=== PATIENT | female | born 1955 | race Caucasian/White ===

== ENCOUNTER → 2017-08-08 09:18 | Outpatient (CLI) | payer BC, SELFPAY ==
--- NOTE | 2017-08-08 09:29 | MR_ITS ---
MR lumbar spine wo con, MR 3-d myelogram/MRCP HISTORY: Low back pain. Left hip and left leg pain with numbness and tingling in the left leg ITS.REASON: ACUTE RIGHT SIDED LOW BACK PAIN WITH RIGHT SIDED SCIATICA ORDERING PHYSICIAN: Adriel Salinas MD PATIENT AGE: 62 years COMPARISON: MRI of 11/01/2015 TECHNIQUE: Standard multiplanar multiecho sequences are performed without contrast. 3-D MIP and myelographic images are also rendered and reviewed FINDINGS: There is normal alignment. The spinal cord ends at the L1 level. T11-T12, T12-L1, and L1-L2 are unremarkable. Minimal disc desiccation at L2-L3. L3-L4: Minimal disc desiccation with mild facet and ligamentum flavum hypertrophy. L4-5 and L5-S1 is unremarkable. No disc herniation or canal stenosis. No significant change from the previous exam. IMPRESSION: 1. No disc herniation or canal stenosis. 2. Mild degenerative disc disease at L3-L4 with mild facet and ligamentum flavum hypertrophy as before with no significant change.
== END ==
PROVIDERS: Family Provider Nurse Practitioner; PCP Internal Medicine Adolescent Medicine; Visit Provider Internal Medicine Adolescent Medicine
DX: M54.41 Lumbago with sciatica, right side (principal)
CPT/HCPCS: 72148; 76376

== ENCOUNTER → 2017-10-24 06:20 | Outpatient (CLI) | payer BC, SELFPAY ==
--- NOTE | 2017-10-24 06:30 | NM_ITS ---
History and Indications: Diabetes, hyperlipidemia, family history, chest pain, shortness of breath. Procedure: Patient received a 0.4 mg of Lexiscan, resting heart rate was 85 bpm resting blood pressure 156/85, with Lexiscan maximum heart rate achieved was 117 bpm which is less than 85% of the maximum predicted heart rate and a blood pressure was 141/79. With Lexiscan patient complained of shortness of breath. Electrocardiogram: Resting electrocardiogram showed sinus rhythm, with Lexiscan there is less than 1.[address] segment depression noted from the baseline EKG. The EKG portion of the Lexiscan Myoview is nondiagnostic. Cardiac stress and resting SPECT images: Cardiac stress and resting SPECT images were obtained using technetium 99 Myoview 31.8 mCi at stress and 10.5 mCi at rest. Gated SPECT further analysis of segmental wall motion and calculation of the ejection fraction also done. Cardiac stress and resting SPECT images show uniform myocardial activity without segmental perfusion abnormality, computer derived ejection fraction is over 65% with no obvious regional wall motion abnormality, right ventricle is normal size and contractility. Conclusion: 1. The EKG portion of the Lexiscan Myoview is nondiagnostic. 2. No obvious scintigraphic evidence of reversible ischemia seen, computer derived ejection fraction is over 65% with no obvious regional wall motion abnormality, right ventricle is normal size and contractility. 3. Normal Lexiscan Myoview study.
--- NOTE | 2017-10-24 07:20 | HMH.ITSHM ---
ATORVASTATIN APIDRA TRASIBA TRINTELLIX VIMOVO TRAZODONE CYMBALTA
--- NOTE | 2017-10-24 10:16 | HMH.ITSHM ---
atorvastatin apidra trasiba trintellis vimovo trazodone cymbalta
== END ==
PROVIDERS: Family Provider Nurse Practitioner; PCP Internal Medicine Adolescent Medicine; Visit Provider Internal Medicine Adolescent Medicine
DX: I20.8 Other forms of angina pectoris (principal); E10.9 Type 1 diabetes mellitus without complications
CPT/HCPCS: 78452; 93017; A9502; J2785

== ENCOUNTER → 2018-11-04 08:57 | Outpatient (POV) | payer BC, SELFPAY ==
[2018-11-04 09:02] VITALS: BP 152/85; PULSE 93; RESP 18; O2SAT 98
--- NOTE | 2018-11-04 09:31 | HMH.PMCON ---
Assessment and Plan (1) Fibromyalgia Current visit: Yes Status: Chronic Category: Medical Code(s): M79.7 - Fibromyalgia (2) Degenerative disc disease Current visit: Yes Status: Chronic Qualifiers: Spinal region: lumbar Qualified Code(s): M51.36 - Other intervertebral disc degeneration, lumbar region Category: Medical (3) Sacroiliitis Current visit: Yes Status: Chronic Category: Medical Code(s): M46.1 - Sacroiliitis, not elsewhere classified - Assessment and plan all Dx Assessment and Plan for all problems:: We will set the patient up for SI joint injections. Patient has not had any injective therapy in the past. She has completed physical therapy. Patient is continuing a home stretching program. Patient is on anti-inflammatories. Patient has done Lyrica in the past with good relief. We will give her information in regards to the Lyrica assistance program. I will follow-up with her after her injection reassess her symptoms at that time she is been instructed to call the office if she has any issues prior to her next appointment. Dr. Miguel has reviewed this note and agrees with this plan of care. This note was dictated using voice recognition software and may contain errors or omissions HPI - Data of Consult Consult date: 11/04/18 Requesting Physician: Radha Vaz APRN Primary Care Provider: Adriel Salinas MD - Consult Narrative Reason for consult: Generalized pain, fibromyalgia, osteoarthritis History of present illness: Ms. Andrew is a 63 year old female who presents today for consultation in regards to her pain. Patient has multiple diagnoses including fibromyalgia and osteoarthritis. Patient has been on gabapentin and did not have much success with that she had side effects and was unable to continue it. Patient had Lyrica in the past however due to expense it was cost prohibitive. Patient did do well with this. She rates her pain today a 5 out of 10. Patient is tried and failed physical therapy. Patient does have an MRI with some mild degenerative changes. Patient states that most of her pain is in her low back radiating into her thighs. Patient has difficulty sitting for long periods of time. Patient has not had any injective therapy. Patient does have one leg longer than the other. CC: Radha Vaz APRN [facility] History I have reviewed the patient's past medical history: Yes Medical History: Reports:: Diabetes Mellitus Type 1, Hyperlipidemia *Have you ever received a pneumonia vaccine?: Yes *Have you received a flu vaccine this season?: Yes Other Surgeries: Yes: - *Social History Smoking Status: Never smoker Alcohol Intake: never *Occupational Status:: other Housing: house *Travel in the last 8 weeks: None - Psychiatric History Expresses thoughts of harming self/others: None Suicide Plan Description: No Plan Family Hx:: Unable to obtain Review of Systems - Review of Systems ROS General: no recent weight change, no fever, no sleep disturbances Respiratory: no cough, no shortness of air, no recurring pulmonary infections Cardiovascular/Peripheral Vascular: No chest pain, No palpitations, no edema, no shortness of breath. Gastrointestinal: no incontinence, normal bowel movements reported Genitourinary: no incontinence Musculoskeletal: SI joint pain, generalized pain Psychiatric: normal mood/ affect Neurological: [denies weakness in extremities], [denies balance issues] Meds Home Medications Medication Instructions Recorded Confirmed Type Atorvastatin Calcium [Atorvastatin 40 mg PO DAILY 11/04/18 11/04/18 History 10mg Tab] Duloxetine HCl 60 mg PO DAILY 11/04/18 11/04/18 History Trazodone HCl 100 mg PO HS 11/04/18 11/04/18 History Allergies Allergy/AdvReac Type Severity Reaction Status Date / Time iron [IRON] Allergy Unknown Unverified 06/05/17 14:38 Penicillins [PENICILLINS] Allergy Unknown Unverified 05/18
--- NOTE | 2018-11-04 09:34 | P.CONS_ITS ---
Assessment and Plan (1) Fibromyalgia Current visit: Yes Status: Chronic Category: Medical Code(s): M79.7 - Fibromyalgia (2) Degenerative disc disease Current visit: Yes Status: Chronic Qualifiers: Spinal region: lumbar Qualified Code(s): M51.36 - Other intervertebral disc degeneration, lumbar region Category: Medical (3) Sacroiliitis Current visit: Yes Status: Chronic Category: Medical Code(s): M46.1 - Sacroiliitis, not elsewhere classified - Assessment and plan all Dx Assessment and Plan for all problems:: We will set the patient up for SI joint injections. Patient has not had any injective therapy in the past. She has completed physical therapy. Patient is continuing a home stretching program. Patient is on anti-inflammatories. Patient has done Lyrica in the past with good relief. We will give her information in regards to the Lyrica assistance program. I will follow-up with her after her injection reassess her symptoms at that time she is been instructed to call the office if she has any issues prior to her next appointment. Dr. Miguel has reviewed this note and agrees with this plan of care. This note was dictated using voice recognition software and may contain errors or omissions HPI - Data of Consult Consult date: 11/04/18 Requesting Physician: Radha Vaz APRN Primary Care Provider: Adriel Salinas MD - Consult Narrative Reason for consult: Generalized pain, fibromyalgia, osteoarthritis History of present illness: Ms. Andrew is a 63 year old female who presents today for consultation in regards to her pain. Patient has multiple diagnoses including fibromyalgia and osteoarthritis. Patient has been on gabapentin and did not have much success with that she had side effects and was unable to continue it. Patient had Lyrica in the past however due to expense it was cost prohibitive. Patient did do well with this. She rates her pain today a 5 out of 10. Patient is tried and failed physical therapy. Patient does have an MRI with some mild degenerative changes. Patient states that most of her pain is in her low back radiating into her thighs. Patient has difficulty sitting for long periods of time. Patient has not had any injective therapy. Patient does have one leg longer than the other. CC: Radha Vaz APRN [facility] History I have reviewed the patient's past medical history: Yes Medical History: Reports:: Diabetes Mellitus Type 1, Hyperlipidemia *Have you ever received a pneumonia vaccine?: Yes *Have you received a flu vaccine this season?: Yes Other Surgeries: Yes: - *Social History Smoking Status: Never smoker Alcohol Intake: never *Occupational Status:: other Housing: house *Travel in the last 8 weeks: None - Psychiatric History Expresses thoughts of harming self/others: None Suicide Plan Description: No Plan Family Hx:: Unable to obtain Review of Systems - Review of Systems ROS General: no recent weight change, no fever, no sleep disturbances Respiratory: no cough, no shortness of air, no recurring pulmonary infections Cardiovascular/Peripheral Vascular: No chest pain, No palpitations, no edema, no shortness of breath. Gastrointestinal: no incontinence, normal bowel movements reported Genitourinary: no incontinence Musculoskeletal: SI joint pain, generalized pain Psychiatric: normal mood/ affect Neurological: [denies weakness in extremities], [denies balance issues] Meds Home Medications
== END ==
PROVIDERS: PCP Internal Medicine Adolescent Medicine; Visit Provider Clinical Nurse Specialist Family Health
DX: M79.7 Fibromyalgia (principal); M51.36 Other intervertebral disc degeneration, lumbar region; M46.1 Sacroiliitis, not elsewhere classified
CPT/HCPCS: 99202

== ENCOUNTER → 2019-02-04 12:38 | Outpatient (CLI) | payer BC, SELFPAY ==
--- NOTE | 2019-02-04 12:43 | XR_ITS ---
PROCEDURE: XR KNEE LT 3V CLINICAL INDICATION: LOCALIZED OSTEOARTHRITIS Knee pain COMPARISON: No exams were available for comparison FINDINGS: There are minimal osteoarthritic changes of the medial compartment. No fracture or dislocation. No lytic or blastic change. IMPRESSION: Minimal osteoarthritic change medial compartment Dictated by: Maurilio Washington MD 02/04/2019 14:11 Signed by: <Electronically signed by Maurilio Washington MD in [place]> 02/04/2019 14:11
== END ==
PROVIDERS: PCP Internal Medicine Adolescent Medicine; Visit Provider Internal Medicine Adolescent Medicine
DX: M17.12 Unilateral primary osteoarthritis, left knee (principal)
CPT/HCPCS: 73562

== ENCOUNTER → 2019-06-03 08:11 | Outpatient (CLI) | payer MEDICARE, SELFPAY ==
--- NOTE | 2019-06-03 08:14 | MM_ITS ---
PROCEDURE: MM DIG SCREENING MAMM BI W/CAD CLINICAL INDICATION: SCREENING There is no personal or family history of breast cancer. COMPARISON: MOBILE DIGITAL SCREEN BILAT* from 06/29/2011 MOBILE DIGITAL SCREEN BILAT* from 07/04/2012 DMDXUAVL DIG MAMM-DX UNI ADD VIEWS-LT from 08/01/2012 TECHNIQUE: Standard CC and MLO images were obtained. R2 CAD reviewed. FINDINGS: Moderate somewhat heterogenic fibroglandular densities are seen in both breast primarily upper outer quadrants. There is no suspicious lesion in either breast and no suspicious microcalcifications. IMPRESSION: Moderate breast density with no suspicious lesions seen BI-RAD Category: 1 Negative FOLLOW-UP: 1YR 1 Year Follow-up (A letter has been sent to the patient regarding results of the study.) Dictated by: Dr. Francis Mejias MD 06/05/2019 13:[address] Francis Mejias MD in [place] 06/05/2019 13:10
== END ==
PROVIDERS: PCP Internal Medicine Adolescent Medicine; Visit Provider Internal Medicine Adolescent Medicine
DX: Z12.31 Encounter for screening mammogram for malignant neoplasm of breast (principal)
CPT/HCPCS: 77067

== ENCOUNTER → 2019-06-09 09:00 | Outpatient (CLI) | payer MEDICARE, SELFPAY ==
--- NOTE | 2019-06-09 09:03 | XR_ITS ---
PROCEDURE: XR DEXA AXIAL SKELETON CLINICAL HISTORY: POSTMENOPAUSAL STATE COMPARISON: No exams were available for comparison FINDINGS: Lumbar spine (L1 through L4), BMD 0.855. T-score -1.7. Left hip (neck), BMD 0.642, T-score -1.9. Left hip (Total), BMD 0.734, T-score -1.7. IMPRESSION: Osteopenia. Dictated by: Sina Otto 06/09/2019 18:21 Electronically signed by Sina Otto in [place] 06/09/2019 18:21
== END ==
PROVIDERS: PCP Internal Medicine Adolescent Medicine; Visit Provider Internal Medicine Adolescent Medicine
DX: Z13.820 Encounter for screening for osteoporosis (principal); Z78.0 Asymptomatic menopausal state
CPT/HCPCS: 77080

== ENCOUNTER → 2020-06-08 12:58 | Outpatient (CLI) | payer MEDICARE, SELFPAY ==
--- NOTE | 2020-06-08 13:03 | MM_ITS ---
PROCEDURE: MM DIG SCREENING MAMM BI W/CAD Digital Breast Tomosynthesis Included CLINICAL INDICATION: SCREENING There is no personal or family history of breast cancer. The patient has had a previous biopsy but which breast is not indicated on the history sheet. COMPARISON: MG MOBILE DIGITAL SCREEN BILAT* from 07/04/2012 MG DMDXUAVL DIG MAMM-DX UNI ADD VIEWS-LT from 08/01/2012 MG MM DIG SCREENING MAMM BI W/CAD from 06/03/2019 TECHNIQUE: Standard CC and MLO images and 3D Tomosynthesis was obtained. R2 CAD reviewed. FINDINGS: Mild to moderate scattered fibroglandular densities are seen in each breast. These are bilateral and symmetrical. There are no CAD markings. There is no suspicious lesion and no suspicious microcalcifications. IMPRESSION: Fibrofatty parenchyma with no suspicious lesions seen BI-RAD Category: 1 Negative FOLLOW-UP: 1YR 1 Year Follow-up (A letter has been sent to the patient regarding results of the study.) Dictated by: Dr. Francis Mejias MD 06/13/2020 18:39 Dr. Francis Mejias MD in [place] 06/13/2020 18:39
== END ==
PROVIDERS: PCP Internal Medicine Adolescent Medicine; Visit Provider Internal Medicine Adolescent Medicine
DX: Z12.31 Encounter for screening mammogram for malignant neoplasm of breast (principal)
CPT/HCPCS: 77063; 77067

== ENCOUNTER 2020-09-28 21:01 | Emergency (ER) | payer MEDICARE, SELFPAY ==
[2020-09-28 21:10] VITALS: BP 116/66; PULSE 78; RESP 17; TEMP 36.8; O2SAT 98; BMI 27.4
[2020-09-28 21:14] VITALS: BMI 27.4
[2020-09-28 21:22] LABS: Basophils % 0.2 % (0.1-2.0); Eosinophils # 0.1 K/mm3 (0.0-0.4); Eosinophils % 0.3 % (0.1-12.0); Hematocrit 42.7 % (37.0-47.0); Hemoglobin 14.4 g/dL (12.2-16.2); Lymphocytes % 5.8 % (10-50); Mean Corpuscular HGB Conc 33.7 g/dL (31.8-35.4); Mean Corpuscular Hemoglobin 29.7 pg (27.0-31.2); Mean Corpuscular Volume 88.2 fl (81-99); Mean Platelet Volume 7.3 fl (7.4-10.4); Monocytes # 1.2 K/mm3 (0.1-1.0); Monocytes % 6.8 % (1.7-9.3); Neutrophils # 15.2 K/mm3 (1.8-7.8); Platelet Count 385 K/mm3 (142-424); Red Blood Count 4.84 M/mm3 (4.20-5.40); Red Cell Distribution Width 12.9 % (11.5-17.5); White Blood Count 17.5 K/mm3 (4.8-10.8)
[2020-09-28 21:26] LABS: Chloride 101 mmol/L (98-107)
[2020-09-28 21:27] LABS: Potassium 4.7 mmoL/L (3.5-5.1); Sodium 134 mmol/L (136-145)
[2020-09-28 21:29] LABS: Alanine Aminotransferase 24 U/L (12-78); Alkaline Phosphatase 113 U/L (38-126); Anion Gap 12.7 mEq/L (5-15); Aspartate Amino Transferase 31 U/L (14-36); Bilirubin,Total 0.7 mg/dl (0.2-1.3); Blood Urea Nitrogen 19 mg/dl (7-17); Carbon Dioxide 25 mmol/L (22.0-30.0); Creatinine Clearance Estimated 66 mL/min (50-200); Estimated Glomerular Filt Rate 63 ml/min (>60); GFR (African American) 77 ML/MIN (>60)
[2020-09-28 21:30] LABS: Albumin/Globulin Ratio 1.3 (1.1-1.8); Glucose 302 mg/dl (74-100)
[2020-09-28 21:32] LABS: MANUAL DIFFERENTIAL MANUAL DIFFERENTIAL (MANUAL DIFF)
[2020-09-28 22:00] VITALS: BP 113/64; PULSE 96; RESP 24; O2SAT 93
[2020-09-28 22:30] VITALS: BP 114/61; PULSE 98; RESP 22; O2SAT 92
--- NOTE | 2020-09-28 22:55 | HMH.EDGENADL ---
ED Disposition Clinical Impression: Urticaria, Hyperglycemia Disposition: Home, Self-Care Condition on Discharge: Fair Additional Instructions: Prednisone, hydroxyzine, and Pepcid as prescribed for hives. Follow blood sugar before each meal and before bed. If blood sugars persistently running greater than 350, contact your primary care provider. Contact your primary care provider for further instructions on diabetes medications. Prescriptions: Famotidine [Pepcid 20mg Tablet] 20 mg PO BID 3 Days #6 tab Transmission Status: Pending to [facility] predniSONE [Prednisone 20mg Tab] 20 mg PO BID #6 tab Transmission Status: Pending to [facility] hydrOXYzine pamoate [Vistaril] 25 mg PO Q6H #12 cap Transmission Status: Pending to [facility] Referrals: Adriel Salinas MD [Primary Care Provider] - - Critical Care Critical Care Time: No Attestation: On 09/28/20, the high probability of a clinically significant, sudden or life threatening deterioration of the following system(s) required my full and direct attention, intervention and personal management. The time I documented below is in addition to time spent performing reported procedures but includes the following listed in this critical care notation. Medical Decision Making - [place] Inquiry Pt receiving controlled substance: No Vital Signs: 09/28/20 21:10 09/28/20 22:00 09/28/20 22:30 Temperature 98.2 F Temperature Source Oral Pulse Rate 96 H 98 H Pulse Rate [Right Brachial] 78 Respiratory Rate 17 24 22 Blood Pressure 113/64 114/61 Blood Pressure [Right Arm] 116/66 Blood Pressure Mean [Right Arm] 82 Blood Pressure Source Automatic Cuff Automatic Cuff Blood Pressure Source [Right Arm] Automatic Cuff Blood Pressure Position Sitting Sitting Blood Pressure Position [Right Arm] Sitting 02 Sat by Pulse Oximetry 98 93 L 92 L Oxygen Delivery Method Room Air Room Air Room Air 09/28/20 23:00 09/28/20 23:30 09/29/20 00:00 Temperature Temperature Source Pulse Rate 95 H 92 H 91 H Pulse Rate [Right Brachial] Respiratory Rate 17 18 18 Blood Pressure 104/51 L 113/59 L 112/65 Blood Pressure [Right Arm] Blood Pressure Mean [Right Arm] Blood Pressure Source Automatic Cuff Automatic Cuff Automatic Cuff Blood Pressure Source [Right Arm] Blood Pressure Position Sitting Sitting Sitting Blood Pressure Position [Right Arm] 02 Sat by Pulse Oximetry 95 95 92 L Oxygen Delivery Method Room Air Room Air Room Air 09/29/20 00:30 Temperature Temperature Source Pulse Rate 90 Pulse Rate [Right Brachial] Respiratory Rate 18 Blood Pressure 119/69 Blood Pressure [Right Arm] Blood Pressure Mean [Right Arm] Blood Pressure Source Automatic Cuff Blood Pressure Source [Right Arm] Blood Pressure Position Sitting Blood Pressure Position [Right Arm] 02 Sat by Pulse Oximetry 94 L Oxygen Delivery Method Room Air - Lab Data Lab Results 09/28/20 21:10: WBC 17.5 H, RBC 4.84, Hgb 14.4, Hct 42.7, MCV 88.2, MCH 29.7, MCHC 33.7, RDW 12.9, Plt Count 385, MPV 7.3 L, Neut % (Auto) 87.0 H, Lymph % (Auto) 5.8 L, Gem % (Auto) 6.8, Eos % (Auto) 0.3, Baso % (Auto) 0.2, Neut # (Auto) 15.2 H, Lymph # (Auto) 1.0, Gem # (Auto) 1.2 H, Eos # (Auto) 0.1, Baso # (Auto) 0.0, Total Counted 100, Neutrophils % (Manual) 94 H, Lymphocytes % (Manual) 4 L, Monocytes % (Manual) 2, Platelet Estimate Normal, RBC Morphology Normal 09/28/20 21:10: Sodium 134 L, Potassium 4.7, Chloride 101, Carbon Dioxide 25, Anion Gap 12.7, BUN 19 H, Creatinine 0.90, Estimated Creat Clear 66, Estimated GFR 63, Est GFR ( Amer) 77, Glucose 302 H, Calcium 9.0, Total Bilirubin 0.7, AST 31, ALT 24, Alkaline Phosphatase 113, Total Protein 7.0, Albumin 4.0, Globulin 3.0, Albumin/Globulin Ratio 1.3 09/28/20 21:10: Troponin I < 0.01 09/29/20 00:10: Lactate 2.9 H 09/29/20 00:27: Urine Color Yellow, Urine Appearance Clear, Urine pH 5.5, Ur Specific [place] 1.015, Ur
[2020-09-28 23:00] VITALS: BP 104/51; PULSE 95; RESP 17; O2SAT 95
--- NOTE | 2020-09-28 23:07 | XR_ITS ---
PROCEDURE: XR CHEST PORTABLE CLINICAL HISTORY: chills COMPARISON: No exams were available for comparison FINDINGS: The cardiomediastinal silhouette and pulmonary vascularity are within normal limits. No lobar consolidation or collapse is evident. There is a vague stellate appearing area of increased density in the right upper lobe overlying the 3rd rib. This may only be due to overlapping structures however, 1 cannot exclude the possibility of a developing pulmonary nodule. Consider upright PA and lateral chest for further evaluation. The remaining lungs are clear. No acute bony abnormalities. IMPRESSION: Possible spiculated lesion right upper lobe versus overlapping vessels and ribs. Suggest upright PA and lateral chest for further evaluation. CT may eventually be needed if the lesion persists. Dictated by: Maurilio Washington MD 09/29/2020 05:56 Maurilio Washington MD in [place] 09/29/2020 05:56
[2020-09-28 23:08] LABS: Lymphocytes % 4 % (10-50); Monocytes % 2 % (2-9); Neutrophils % 94 % (42-76); Platelet Estimate Normal; RBC Morphology Normal; Total Cells Counted 100
[2020-09-28 23:30] VITALS: BP 113/59; PULSE 92; RESP 18; O2SAT 95
[2020-09-28 23:39] LABS: Troponin I < 0.01 ng/ml (0.00-0.034)
[2020-09-29] VITALS: BP 112/65; PULSE 91; RESP 18; O2SAT 92
[2020-09-29 00:30] VITALS: BP 119/69; PULSE 90; RESP 18; O2SAT 94
[2020-09-29 00:44] LABS: Lactic Acid 2.9 mmol/L (0.7-2.1)
[2020-09-29 00:59] LABS: Microscopic, Urine URINE MICROSCOPIC (MICROSCOPIC)
[2020-09-29 01:01] LABS: Appearance,Urine CLEAR (Clear); Bilirubin,Urine Negative (Negative); Blood, Urine Negative (Negative); Color,Urine YELLOW (Yellow); Glucose,Urine (UA) 3+ (Negative); Ketones,Urine TRACE (Negative); Leukocyte Esterase,Urine Negative (Negative); Nitrate,Urine Negative (Negative); PH,Urine 5.5 (5.0-8.5); Protein,Urine Negative (Negative); Specific Gravity, Urine 1.015 (1.005-1.030)
[2020-09-29 01:11] LABS: Bacteria,Urine 1+ /lpf
[2020-09-29 01:51] VITALS: BP 109/74; PULSE 89; RESP 17; TEMP 36.6; O2SAT 98
[2020-09-29 01:55] LABS: POC Glucose,Bedside 290 (70-110)
== END 2020-09-29 01:53 | disposition home or self-care (01) ==
PROVIDERS: Emergency Provider Emergency Medicine; PCP Internal Medicine Adolescent Medicine
DX: L50.0 Allergic urticaria (principal); T38.3X5A Adverse effect of insulin and oral hypoglycemic [antidiabetic] drugs, initial encounter; E10.649 Type 1 diabetes mellitus with hypoglycemia without coma; E10.65 Type 1 diabetes mellitus with hyperglycemia; K21.9 Gastro-esophageal reflux disease without esophagitis; E78.5 Hyperlipidemia, unspecified; Z88.0 Allergy status to penicillin; Z88.2 Allergy status to sulfonamides
CPT/HCPCS: 71045; 80053; 81001; 82962; 83605; 84484; 85007; 85025; 87040; 93005; 96365; 96375; 99283

== ENCOUNTER → 2020-10-11 12:45 | Outpatient (CLI) | payer MEDICARE, SELFPAY ==
[2020-10-11 13:06] LABS: Blood Urea Nitrogen 14 mg/dl (7-17); Estimated Glomerular Filt Rate 56 ml/min (>60); GFR (African American) 68 ML/MIN (>60)
--- NOTE | 2020-10-11 13:09 | CT_ITS ---
PROCEDURE: CT CHEST W CON CLINCAL INDICATION: LUNG MASS Follow up lung nodule COMPARISON: CR XR CHEST PORTABLE from 09/28/2020 TECHNIQUE: IV Contrast: 75ml Isovue 370 Axial images obtained with sagittal and coronal reformats. All CT scans at the facility use one or more dose reduction, viz: automated exposure control, ma/kV adjustment per patient size (including targeted exams where dose is matched to indication, i.e. head), or iterative reconstruction technique. FINDINGS: HEART AND MEDIASTINAL STRUCTURES: Unremarkable. LUNGS AND PLEURAL SPACES: 4 mm nodular middle lobe laterally. Two small nodular opacities in the left lower lobe at 3 mm. Subsolid nodular density left lower lobe laterally at 4 mm. Minimal atelectatic or fibrotic changes are present in the lingula. 3 mm noncalcified nodule right upper lobe image 15 series 3 BONY STRUCTURES: No acute bony abnormalities apparent. UPPER ABDOMEN: Mild fatty liver ADDITIONAL FINDINGS: Mildly prominent left axillary and subpectoral lymph nodes are present measuring up to 18 x 10 mm. Smaller nodes are present on the right.. IMPRESSION: 1. There are scattered small bilateral pulmonary nodules as detailed above. Consider six-month follow-up to confirm short term stability. No spiculated or suspicious nodules apparent. 2. Mildly prominent axillary lymph nodes etiology indeterminate. Dictated by: Maurilio Washington MD 10/12/2020 09:22 Maurilio Washington MD in [place] 10/12/2020 09:22
== END ==
PROVIDERS: PCP Internal Medicine Adolescent Medicine; Visit Provider Internal Medicine Adolescent Medicine
DX: R91.8 Other nonspecific abnormal finding of lung field (principal)
CPT/HCPCS: 36415; 71260; 82565; 84520; Q9967

== ENCOUNTER → 2021-04-18 08:07 | Outpatient (CLI) | payer MEDICARE, SELFPAY ==
--- NOTE | 2021-04-18 08:19 | CT_ITS ---
PROCEDURE: CT CHEST WO/W CON CLINCAL INDICATION: PULMONARY NODULE COMPARISON: CT CT CHEST W CON from 10/11/2020 TECHNIQUE: IV Contrast: 75ml Isovue 370 Axial images obtained with sagittal and coronal reformats. All CT scans at the facility use one or more dose reduction, viz: automated exposure control, ma/kV adjustment per patient size (including targeted exams where dose is matched to indication, i.e. head), or iterative reconstruction technique. FINDINGS: HEART AND MEDIASTINAL STRUCTURES: No evidence of aortic aneurysm or dissection. No evidence of central pulmonary embolus. There is mild prominence of the right and left main pulmonary arteries which could be related to pulmonary arterial hypertension. LUNGS AND PLEURAL SPACES: Scattered small nodular opacities once again noted not significantly changed. No new nodules evident. No suspicious nodules apparent. No effusions or infiltrates. BONY STRUCTURES: No acute bony abnormalities apparent. UPPER ABDOMEN: Nonspecific small area of enhancement involving the right hepatic lobe posteriorly not significantly changed ADDITIONAL FINDINGS: Small axillary nodes have slightly decreased in size compared to the previous exam. IMPRESSION: Stable CT appearance of the chest. No change in the small pulmonary nodules. No new nodules evident. Dictated by: Maurilio Washington MD 04/19/2021 13:31 Maurilio Washington MD in [place] 04/19/2021 13:31
[2021-04-18 08:33] LABS: Blood Urea Nitrogen 13 mg/dl (7-17); Estimated Glomerular Filt Rate 84 ml/min (>60); GFR (African American) 102 ML/MIN (>60)
== END ==
PROVIDERS: PCP Internal Medicine Adolescent Medicine; Visit Provider Internal Medicine Adolescent Medicine
DX: R91.8 Other nonspecific abnormal finding of lung field (principal)
CPT/HCPCS: 36415; 71270; 82565; 84520; Q9967

== ENCOUNTER → 2021-06-30 13:25 | Outpatient (CLI) | payer MEDICARE, SELFPAY | PROVIDERS: PCP Internal Medicine Adolescent Medicine; Visit Provider Nurse Practitioner | DX: U07.1 COVID-19 (principal) | CPT/HCPCS: C9803; U0003; U0005 ==

== ENCOUNTER → 2021-10-05 08:33 | Outpatient (CLI) | payer MEDICARE, SELFPAY ==
[2021-10-05 10:08] LABS: Chloride 103 mmol/L (98-107); Potassium 4.6 mmoL/L (3.5-5.1); Sodium 140 mmol/L (136-145)
[2021-10-05 10:10] LABS: Blood Urea Nitrogen 15 mg/dl (7-17); Estimated Glomerular Filt Rate 72 ml/min (>60); GFR (African American) 87 ML/MIN (>60)
[2021-10-05 10:11] LABS: Alanine Aminotransferase 22 U/L (12-78); Albumin Level 3.7 g/dl (3.5-5.0); Albumin/Globulin Ratio 1.3 (1.1-1.8); Alkaline Phosphatase 122 U/L (38-126); Anion Gap 9.6 mEq/L (5-15); Aspartate Amino Transferase 24 U/L (14-36); Bilirubin,Total 0.5 mg/dl (0.2-1.3); Calcium 8.5 mg/dl (8.4-10.2); Carbon Dioxide 32 mmol/L (22.0-30.0); Globulin 2.9 g/dL (1.3-3.2); Glucose 183 mg/dl (74-100); Total Protein,Serum 6.6 g/dl (6.3-8.2)
[2021-10-06 11:13] LABS: C-Peptide <0.1 ng/mL (1.1-4.4)
== END ==
PROVIDERS: Visit Provider Internal Medicine Endocrinology, Diabetes & Metabolism
DX: E10.65 Type 1 diabetes mellitus with hyperglycemia (principal)
CPT/HCPCS: 36415; 80053; 84681

== ENCOUNTER → 2022-02-27 17:21 | Outpatient (CLI) | payer MEDICARE, OTHER, SELFPAY ==
[2022-02-27 18:24] LABS: Basophils # 0.1 K/mm3 (0-0.2); Basophils % 1.1 % (0.1-2.0); Eosinophils # 0.2 K/mm3 (0.0-0.4); Eosinophils % 1.4 % (0.1-12.0); Hematocrit 45.3 % (37.0-47.0); Hemoglobin 14.3 g/dL (12.2-16.2); Lymphocytes % 19.6 % (10-50); Mean Corpuscular HGB Conc 31.6 g/dL (31.8-35.4); Mean Corpuscular Hemoglobin 29.2 pg (27.0-31.2); Mean Corpuscular Volume 92.2 fl (81-99); Mean Platelet Volume 8.1 fl (7.4-10.4); Monocytes % 9.1 % (1.7-9.3); Neutrophils # 7.2 K/mm3 (1.8-7.8); Neutrophils % 68.8 % (37.0-80.0); Platelet Count 364 K/mm3 (142-424); Red Blood Count 4.91 M/mm3 (4.20-5.40); Red Cell Distribution Width 13.6 % (11.5-17.5); White Blood Count 10.5 K/mm3 (4.8-10.8)
[2022-02-27 20:35] LABS: Hemoglobin A1C 7.7 % (4.0-6.0)
[2022-02-27 20:41] LABS: Alanine Aminotransferase 21 U/L (12-78); Albumin Level 4.1 g/dl (3.5-5.0); Albumin/Globulin Ratio 1.4 (1.1-1.8); Alkaline Phosphatase 120 U/L (38-126); Anion Gap 15.2 mEq/L (5-15); Aspartate Amino Transferase 26 U/L (14-36); Bilirubin,Total 0.6 mg/dl (0.2-1.3); Blood Urea Nitrogen 14 mg/dl (7-17); Carbon Dioxide 28 mmol/L (22.0-30.0); Chloride 97 mmol/L (98-107); Estimated Glomerular Filt Rate 63 ml/min (>60); GFR (African American) 76 ML/MIN (>60); Glucose 194 mg/dl (74-100); Potassium 4.2 mmoL/L (3.5-5.1); Sodium 136 mmol/L (136-145); Total Protein,Serum 7.1 g/dl (6.3-8.2)
[2022-02-27 20:48] LABS: C-Reactive Protein 1.5 mg/L (0-4)
[2022-02-27 20:59] LABS: T4 (Thyroxine) 10.7 ug/dl (5.53-11.0); Triiodothryronine (T3) Uptake 28 % (23.5-40.5)
[2022-02-27 21:12] LABS: Thyroid Stimulating Hormone 2.11 uIU/mL (0.465-4.68)
[2022-02-27 21:38] LABS: Erythrocyte Sedimentation Rate 15 mm/hr (0-30)
[2022-03-01 12:18] LABS: RA Latex Turbid. <10.0 IU/mL (<14.0)
[2022-03-01 14:59] LABS: Anti-Centromere B Antibodies 0.7 AI (0.0-0.9); Anti-DNA (DS) Ab Qn 1 IU/mL (0-9); Anti-Jo-1 <0.2 AI (0.0-0.9); Anti-Smith Antibody <0.2 AI (0.0-0.9); Antichromatin Antibodies 0.7 AI (0.0-0.9); Antiscleroderma-70 Antibodies <0.2 AI (0.0-0.9); RNP Antibodies 0.2 AI (0.0-0.9); Sjogren's Anti-SS-A <0.2 AI (0.0-0.9); Sjogren's Anti-SS-B <0.2 AI (0.0-0.9)
[2022-03-03 01:08] LABS: Anti-Cyclic Citrullinated Pept 6 units (0-19)
== END ==
PROVIDERS: PCP Internal Medicine Adolescent Medicine; Visit Provider Nurse Practitioner Family
DX: K13.21 Leukoplakia of oral mucosa, including tongue (principal); E10.9 Type 1 diabetes mellitus without complications; M25.50 Pain in unspecified joint
CPT/HCPCS: 36415; 80053; 83036; 84436; 84443; 84479; 85025; 85651; 86038; 86140; 86200; 86225; 86235; 86431

== ENCOUNTER → 2022-04-11 15:20 | Outpatient (POV) | payer MEDICARE, SELFPAY ==
[2022-04-11 15:32] VITALS: BP 133/73; PULSE 87; RESP 18; TEMP 36.9; O2SAT 98; BMI 25.7
--- NOTE | 2022-04-11 16:14 | EXP.PAIN.OV ---
HPI Data of Consult Patient: new to practice Consult date: 04/11/22 Requesting Physician: Marnie Chamberlain APRN Primary Care Provider: Adriel Salinas MD Consult Narrative Reason for consult: Generalized joint pain, low back pain, bilateral leg pain History of present illness: Ms. Andrew is a 67 year old female who presents today as a new patient. She is a referral from Dr. Montilla's office. Today she rates her pain a 8 out of 10. She states the pain is throughout her joints as well as low back pain due to bulging disc and bilateral leg pain. Patient states this has been going on for years and just worsened over time. Patient does states she has a history of fibromyalgia and also states that she has 1 hip higher than the other. Patient describes this as a achy, throbbing, sharp sensation that is worse with increased activity. Patient states this does affect her activities of daily living and frequently cannot tolerate much range of motion. Patient states that she frequently has to stop and take breaks between activities due to the pain. Patient had been prescribed gabapentin however she states she did not get any improvement of her symptoms and has since stopped taking this medication. Patient states she is also tried pregabalin with no difference. Patient states she does occasionally use eomp-rve-[id number] Tylenol and NSAIDs however minimal relief is given. Patient has tried heat and ice and states heat does work better but limited on how long it helps. Patient has not tried physical therapy in the past. Patient did see a chiropractor within the last year that did provide some improvement of her symptoms however only short-term. Patient has tried tried topicals in the past with little to no relief of her symptoms. Patient is a type I diabetic well controlled. Her Bradley is [id number]. It has been reviewed and appropriate. CC: Marnie Chamberlain APRN [facility] Medical History (Updated 04/11/22 @ 16:18 by Marnie Chamberlain APRN) Anxiety Depression Diabetes Fibromyalgia HLD (hyperlipidemia) Osteoarthritis Surgical History (Updated 04/11/22 @ 15:36 by Edie Blanchard RN) H/O dilation and curettage H/O: section Social History (Updated 04/11/22 @ 15:36 by Edie Blanchard RN) Smoking Status: Never smoker alcohol intake: never current occupational status: disabled and other Travel in the last 8 weeks: None housing: house caffeine: No Review of Systems Review of Systems Review of systems:: pertinent systems reviewed and negative unless documented below Review of systems (narrative): Review of Systems: General: No recent weight changes, no fever, no sleep disturbances Respiratory: No cough, no shortness of air, no recurring pulmonary infections Cardiovascular/peripheral vascular: No chest pain, no palpitations, no edema, no shortness of breath Gastrointestinal: No new onset incontinence, normal bowel movements reported Genitourinary: No new onset incontinence Musculoskeletal: Generalized joint pain, low back pain, bilateral leg pain Psychiatric: [Normal mood/affect] Neurological: [Denies weakness in extremities], [denies balance issues] Meds Home Medications and Allergies Home Medications Medication Instructions Recorded Confirmed Type atorvastatin 10 mg tablet 40 mg PO DAILY Cholesterol 11/04/18 04/11/22 History duloxetine 60 mg capsule,delayed 60 mg PO DAILY Depression 11/04/18 04/11/22 History release trazodone 100 mg tablet 100 mg PO HS INSOMNIA 11/04/18 04/11/22 History famotidine 20 mg tablet 20 mg PO BID STOMACH 04/11/22 04/11/22 History hydroxyzine pamoate 25 mg capsule 25 mg PO Q6H MOOD 04/11/22 04/11/22 History prednisone 20 mg tablet 20 mg PO BID Pain 04/11/22 04/11/22 History New Prescriptions to Start Prescriptions: Allergies Allergy/AdvReac Type Severity Reaction Status Date / Time iron [IRON] Allergy Unknown Verified 09/28/20 21:19 Penicillins [PENICILLINS] Allergy Unk
== END ==
PROVIDERS: PCP Internal Medicine Adolescent Medicine; Visit Provider Nurse Practitioner Family
DX: M51.36 Other intervertebral disc degeneration, lumbar region (principal); M46.1 Sacroiliitis, not elsewhere classified; M79.7 Fibromyalgia; M25.50 Pain in unspecified joint; M79.604 Pain in right leg; M79.605 Pain in left leg; Z79.899 Other long term (current) drug therapy
CPT/HCPCS: 99202; G0463

== ENCOUNTER → 2022-04-27 15:09 | Outpatient (POV) | payer MEDICARE, SELFPAY ==
[2022-04-27 15:33] VITALS: BP 143/80; PULSE 84; RESP 18; O2SAT 97; BMI 26.6
--- NOTE | 2022-04-27 15:45 | EXP.PAIN.SOA ---
[facility] Pain Management SOAP Note Subjective:: Patient is a pleasant 67-year-old female who presents today for follow-up. We are currently treating the patient for degenerative disc disease of lumbar spine with lumbar radiculopathy symptoms, fibromyalgia, sacroiliitis. Today the patient rates her pain a 9 out of 10. Patient denies any new trauma or injury. Patient denies any change location or type of pain she experiences. Patient states the pain is all in her low back and her generalized joints. At our last visit I ordered the patient a compounding cream however the patient states she never got a phone call from them. Patient was given another sheet today for her to contact the local pharmacy regarding this medicine. She states the pain is a aching, throbbing sensation with occasional sharp pains that is worse with increased activity. Patient has tried gabapentin and pregabalin in the past however she stated she did not notice significant improvement of her symptoms. She has tried agxi-guw-zybrwnj Tylenol and NSAIDs with minimal relief. Patient does occasionally use heat and ice to provide temporary relief. Patient has not been to physical therapy but has seen a chiropractor within the last year with some improvement of her symptoms. Patient is a type I diabetic well controlled with a insulin pump in place. Her Bradley is [id number]. It has been reviewed and appropriate. Review of Systems: General: No recent weight changes, no fever, no sleep disturbances Respiratory: No cough, no shortness of air, no recurring pulmonary infections Cardiovascular/peripheral vascular: No chest pain, no palpitations, no edema, no shortness of breath Gastrointestinal: No new onset incontinence, normal bowel movements reported Genitourinary: No new onset incontinence Musculoskeletal: Generalized joint pain, low back pain Psychiatric: [Normal mood/affect] Neurological: [Denies weakness in extremities], [denies balance issues] Objective:: Physical Exam: General: Alert and oriented x3, no acute distress, pleasant and cooperative Lungs: Respirations even and unlabored, symmetrical chest expansion Eyes: PERRL Musculoskeletal: Flexion and extension of generalized joints, lumbar [spine] somewhat guarded secondary to pain, [antalgic gait noted] Neurological: Speech clear, no gross sensory deficit Assessment:: Degenerative disc disease of lumbar spine with lumbar radiculopathy symptoms, fibromyalgia, sacroiliitis. Plan:: Patient continues to experience significant pain in her low back as well as generalized joint pain. Previously I did recommend that she may benefit from a lumbar epidural however at this time the patient is not interested in injective therapy. I will send in a 1 month supply of baclofen 5 mg at bedtime. Patient will return to clinic in 1 month for reevaluation of symptoms and plan of care. Patient has been instructed to contact the clinic with any concerns before the next appointment. Dr. Miguel has reviewed this note and agrees with this plan of care. This note was dictated using voice recognition software and make contain errors or omissions. PFSH PFSH Medical History (Updated 04/11/22 @ 16:18 by Marnie Chamberlain APRN) Anxiety Depression Diabetes Fibromyalgia HLD (hyperlipidemia) Osteoarthritis Surgical History (Updated 04/11/22 @ 15:36 by Edie Blanchard RN) H/O dilation and curettage H/O: section Social History (Updated 04/11/22 @ 15:36 by Edie Blanchard RN) Smoking Status: Never smoker alcohol intake: never current occupational status: retired Travel in the last 8 weeks: None housing: house caffeine: No
== END | disposition home or self-care (01) ==
PROVIDERS: PCP Internal Medicine Adolescent Medicine; Visit Provider Nurse Practitioner Family
DX: M51.16 Intervertebral disc disorders with radiculopathy, lumbar region (principal); M46.1 Sacroiliitis, not elsewhere classified; M79.7 Fibromyalgia
CPT/HCPCS: 99212; G0463

== ENCOUNTER → 2022-05-01 11:39 | Outpatient (CLI) | payer MEDICARE, SELFPAY ==
--- NOTE | 2022-05-01 11:46 | ECG_ITS ---
APPROVED REPORT Exam: Resting ECG HR:63 bpm ECG Measurements Heart Rate 63 AXES OH 135 P 63 QRSd 93 QRS 77 QT 411 T 28 QTc 418 Conclusion SINUS RHYTHM LOW QRS VOLTAGE IN PRECORDIAL LEADS [QRS DEFLECTION < 1.0 mV IN CHEST LEADS] BORDERLINE ECG UNCONFIRMED REPORT Electronically signed by : Adriel Salinas MD 05/01/2022 21:10:01
[2022-05-01 12:12] LABS: MANUAL DIFFERENTIAL MANUAL DIFFERENTIAL (MANUAL DIFF)
[2022-05-01 12:24] LABS: Basophils # 0.1 K/mm3 (0-0.2); Basophils % 1.6 % (0.1-2.0); Eosinophils # 0.1 K/mm3 (0.0-0.4); Hematocrit 41.3 % (37.0-47.0); Hemoglobin 13.4 g/dL (12.2-16.2); Lymphocytes # 1.8 K/mm3 (0.7-4.5); Lymphocytes % 27.1 % (10-50); Mean Corpuscular HGB Conc 32.4 g/dL (31.8-35.4); Mean Corpuscular Hemoglobin 29.6 pg (27.0-31.2); Mean Corpuscular Volume 91.4 fl (81-99); Mean Platelet Volume 7.9 fl (7.4-10.4); Monocytes # 0.5 K/mm3 (0.1-1.0); Monocytes % 7.5 % (1.7-9.3); Neutrophils # 4.1 K/mm3 (1.8-7.8); Neutrophils % 61.9 % (37.0-80.0); Platelet Count 339 K/mm3 (142-424); Red Blood Count 4.52 M/mm3 (4.20-5.40); Red Cell Distribution Width 13.1 % (11.5-17.5); White Blood Count 6.6 K/mm3 (4.8-10.8)
[2022-05-01 16:48] LABS: Eosinophils % 1 % (0-3); Lymphocytes % 29 % (10-50); Monocytes % 3 % (2-9); Neutrophils % 66 % (42-76); Platelet Estimate Normal; RBC Morphology Normal; Total Cells Counted 100
== END ==
PROVIDERS: PCP Internal Medicine Adolescent Medicine; Visit Provider Otolaryngology
DX: K13.21 Leukoplakia of oral mucosa, including tongue (principal); L43.9 Lichen planus, unspecified; Z01.818 Encounter for other preprocedural examination
CPT/HCPCS: 36415; 85007; 85014; 85018; 85048; 85049; 93005

== ENCOUNTER 2022-05-15 06:03 | Day surgery (SDC) | payer MEDICARE, SELFPAY ==
--- NOTE | 2022-05-09 15:44 | SUR.PREOP ---
Attempted to call pt for pre-op phone call, unable to leave voicemail for call back #.
[2022-05-12 14:25] VITALS: BMI 26.6
[2022-05-15 06:33] VITALS: BP 135/83; PULSE 91; RESP 18; TEMP 36.4; O2SAT 97
--- NOTE | 2022-05-15 07:05 | P.PN_ITS ---
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 Lichen planus Osteoarthritis Surgical History H/O dilation and curettage H/O: section Family History Other Family history of cancer Family history of myocardial infarction Family history of stroke Social History Smoking Status: Never smoker alcohol intake: never substance use type: denies use current occupational status: retired Travel in the last 8 weeks: None housing: house caffeine: No [facility] Anesthesia Checklist Patient Identification Patient Identification: Arm Band and Verbal (Name & ) Structural Data Admitted From: Home Planned Operative Procedure/s: Excision lesions Consent for Planned Operative Procedure(s) Verified: Yes NPO Status Verified Time NPO: 00:00 Chart Verification Results Verified: CBC and BMP Additional verifications Anesthesia Reactions: No Hx Blood Transfusions: No Blood Transfusion Reaction: No Airway Assessment C-Spine Mobility Assessed: Yes TMJ Mobility Assessed: Yes Dentition: Good Dentition Neurological Assessment Level of Consciousness: Awake Hx Seizures: No Numbness or tingling in extremities: No Anesthesia Plan Anesthesia Risk discussed: Yes Anesthesia Plan: Verified ASA Class: II Anesthesia Type: MAC
[2022-05-15 08:45] VITALS: BP 126/74; PULSE 89; RESP 16; TEMP 36.3; O2SAT 94
--- NOTE | 2022-05-15 08:49 | P.OP_ITS ---
Date of procedure: 05/15/22 Pre-op Diagnosis:: 1. Right and left lower lip lesions 2. Bilateral buccal mucosal lesions 3. Bilateral anterior mucosal tongue lesions (2 right, 1 left) Post-op Diagnosis:: Same?pathology pending Procedure performed:: 1. Excision of 8 mm right lower lip lesion?horizontal adjacent to vermilion border with closure 2. Excision of 8 mm left lower lip lesion?vertical with closure 3. Excision of 12 mm right tongue lesion with primary closure 4. Excision of 3 mm right dorsal tongue lesion with primary closure 5. Excision of 8 mm left tongue lesion with primary closure 6. Bilateral excision of buccal mucosa lesion 12 x 12 mm Surgeon:: Jose Velasquez III, MD GASTROENTEROLOGY TEACHER:: Edward Small Anesthesia: MAC Estimated blood loss (mL): 5 Operative findings:: She had multiple mucosal lesions as noted above, the buccal mucosal lesions were more lacy and spreading type. The lip lesions appear to be scar tissue. The tongue lesions appear to be mucosal with abnormal borders Operative note:: The patient was brought to the operating room and given IV sedation. She was placed in the right lounge chair position and I injected 2% lidocaine with epinephrine into the buccal mucosal area bilaterally the tongue lesions bilaterally as well as the lip lesions bilaterally. The lip was prepared and draped usual fashion. I elected to make an elliptical incision vertically on the left lip and horizontally on the right as it was approaching the vermilion border. After the ellipses were marked out incision was made using sharp dissection down to the muscular lip removing the mucosa and submucosal tissue. Both incisions were closed using 5-0 chromic sutures. Attention was then turned towards the tongue. The tongue had 3 separate lesions that were on the mucosal surface. The right tube were outlined and removed using sharp dissection. I then reapproximated the mucosal edges with interrupted 5-0 chromic sutures. The left tongue lesion was removed in similar fashion it was more vertical and was reapproximated using the same suture. Lastly, buccal mucosal lesions were removed using sharp dissection. The base was cauterized using the bipolar cautery. On the right side we are approximating the Stensen's duct opening this was preserved. After this was completed the wound was irrigated. There is no evidence of any further bleeding. Patient was awakened in the operating room and taken to the recovery room in good condition. The estimated blood loss was less than 10 mL. Condition: stable Disposition: same day Complications:: none
[2022-05-15 08:55] VITALS: BP 121/74; PULSE 82; RESP 16; O2SAT 91
--- NOTE | 2022-05-15 08:58 | SUR.PHASEII ---
0847 - Blood sugar 137
[2022-05-15 09:05] VITALS: BP 121/72; PULSE 83; RESP 16; O2SAT 91
[2022-05-15 09:15] VITALS: BP 135/79; PULSE 81; RESP 16; O2SAT 93
[2022-05-15 09:25] VITALS: BP 137/81; PULSE 79; RESP 16; TEMP 36.3; O2SAT 95
[2022-05-16 22:26] LABS: POC Glucose,Bedside 119 (70-110)
== END 2022-05-15 09:25 | disposition home or self-care (01) ==
PROVIDERS: PCP Internal Medicine Adolescent Medicine; Visit Provider Otolaryngology
DX: L57.0 Actinic keratosis; E11.9 Type 2 diabetes mellitus without complications; K12.30 Oral mucositis (ulcerative), unspecified; Z79.899 Other long term (current) drug therapy
CPT/HCPCS: 11440 ×2; 82962; 88305; J2405

== ENCOUNTER → 2022-06-01 15:10 | Outpatient (POV) | payer MEDICARE, SELFPAY ==
[2022-06-01 15:16] VITALS: BP 148/70; PULSE 77; RESP 18; O2SAT 99; BMI 25.9
--- NOTE | 2022-06-01 15:29 | EXP.PAIN.SOA ---
[facility] Pain Management SOAP Note Subjective:: Patient is a pleasant 67-year-old female who presents today for follow-up. We are currently treating the patient for degenerative disc disease of lumbar spine with lumbar radiculopathy symptoms, low back pain. Today the patient rates her pain a 8 out of 10. Patient denies any new trauma or injury. Patient denies any change location or type of pain she experiences. Patient does state this is a constant achy, throbbing sensation that is worse with increased activity. Patient takes shyg-tyg-fghzqjg Tylenol or ibuprofen as needed with minimal improvement of her symptoms. Patient has tried gabapentin and pregabalin in the past with no improvement of her symptoms and does not take these any longer. Patient has tried heat and ice and states that heating pad does work better however only temporary. Patient has been to a chiropractor in the past that provided some improvement. Patient is a type I diabetic who is well controlled. Patient is requesting something stronger to help with her pain symptoms at today's visit. Patient is not interested in injective therapy or a spinal cord stimulator trial as we spoke about at our previous visit. Patient has tried the compounding cream and does state it does provide some improvement on her knee pain however did not do anything significant for her low back pain. Patient was also given tizanidine 4 mg at bedtime however she states she did not notice significant improvement of this medication. Her Bradley is [id number]. Its been reviewed and appropriate. Review of Systems: General: No recent weight changes, no fever, no sleep disturbances Respiratory: No cough, no shortness of air, no recurring pulmonary infections Cardiovascular/peripheral vascular: No chest pain, no palpitations, no edema, no shortness of breath Gastrointestinal: No new onset incontinence, normal bowel movements reported Genitourinary: No new onset incontinence Musculoskeletal: Low back pain Psychiatric: [Normal mood/affect] Neurological: [Denies weakness in extremities], [denies balance issues] Objective:: Physical Exam: General: Alert and oriented x3, no acute distress, pleasant and cooperative Lungs: Respirations even and unlabored, symmetrical chest expansion Eyes: PERRL Musculoskeletal: Flexion and extension of lumbar [spine] somewhat guarded secondary to pain, [antalgic gait noted] Neurological: Speech clear, no gross sensory deficit Assessment:: Degenerative disc disease of lumbar spine with lumbar radiculopathy symptoms, low back pain Plan:: Patient continues to experience significant pain in her low back with radiating symptoms into her lower extremities. I will send in baclofen 10 mg 3 times daily as needed and provide a 2-week supply of this medication. I will also give the patient a order of tramadol 50 mg daily and a 14-day supply of this medication. Patient will return to clinic in 1 month for reevaluation of symptoms and follow-up. Patient has been instructed to contact the clinic with any concerns before the next appointment. Dr. Miguel has reviewed this note and agrees with this plan of care. This note was dictated using voice recognition software and make contain errors or omissions. [facility] Disclaimer: The information contained in this section may have been updated after the patient was seen, as this information can be updated by other users. 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
== END | disposition home or self-care (01) ==
PROVIDERS: PCP Internal Medicine Adolescent Medicine; Visit Provider Nurse Practitioner Family
DX: M51.16 Intervertebral disc disorders with radiculopathy, lumbar region (principal)
CPT/HCPCS: 99212; G0463

== ENCOUNTER → 2022-06-28 13:38 | Outpatient (CLI) | payer MEDICARE, SELFPAY ==
--- NOTE | 2022-06-28 13:42 | CT_ITS ---
FINAL REPORT CLINICAL HISTORY: Pulmonary nodule, history of histoplasmosis COMPARISON: None FINDINGS: Axial CT images of the chest were obtained with contrast. Coronal reformatted images were also obtained. This study was performed with techniques to keep radiation doses as low as reasonably achievable, (ALARA). Individualized dose reduction techniques using automated exposure control or adjustment of mA and/or KV according to the patient's size were employed. There is mild thickening of the mid and distal esophagus which is nonspecific, favor inflammatory. If indicated, this can be further evaluated with endoscopy. There is no evidence of mediastinal or hilar mass or adenopathy. No axillary mass or adenopathy is identified. On lung window images, there is a nodule near the minor fissure measuring 3 mm seen on image 37. There is a left lower lobe nodule measuring 4 mm seen on image 47. There are several other small nodules also identified. There are mild patchy ground-glass opacities which favor mild edema or alveolitis. There is mild atelectasis or scarring in the lung bases. Limited images of the upper abdomen reveal mild nonspecific gallbladder wall thickening. There is heterogeneous enhancement of the spleen of uncertain significance. IMPRESSION: Small nodules, likely benign. If indicated, additional follow-up in 12 months. Nonspecific mild thickening of the mid and distal esophagus, favor inflammatory. If indicated, this can be further evaluated with endoscopy. Reviewed, Interpreted and Dictated by Maico Sanon III, MD Transcribed by Fiona Bowens Authenticated and [facility]
[2022-06-28 14:24] LABS: Blood Urea Nitrogen 11 mg/dl (7-17); Estimated Glomerular Filt Rate 63 ml/min (>60); GFR (African American) 76 ML/MIN (>60)
== END ==
LOC: RAD 13:38
PROVIDERS: PCP Internal Medicine Adolescent Medicine; Visit Provider Internal Medicine Adolescent Medicine
DX: R91.1 Solitary pulmonary nodule (principal)
CPT/HCPCS: 36415; 71260; 82565; 84520; Q9967

== ENCOUNTER → 2022-07-05 15:12 | Outpatient (POV) | payer MEDICARE, SELFPAY ==
[2022-07-05 15:51] VITALS: BP 123/71; PULSE 86; RESP 18; O2SAT 97; BMI 25.7
--- NOTE | 2022-07-05 15:55 | EXP.PAIN.SOA ---
[facility] Pain Management SOAP Note Subjective:: Patient is a pleasant 67-year-old female who presents today for follow-up. We are currently treating the patient for degenerative disc disease of lumbar spine with lumbar radiculopathy symptoms, low back pain. Today she rates her pain an 8 out of 10. Patient denies any new trauma or injury. Patient denies any change to location or type of pain she experiences. At our last visit the patient was prescribed tramadol 50 mg daily and baclofen 10 mg 3 times a day. Patient states that she noticed no improvement with the tramadol and the baclofen just made her sleepy. Patient states that she does take trazodone nightly already. Patient has tried gabapentin and pregabalin in the past with no additional improvement. Patient is also use [id number]-[id number] Tylenol and ibuprofen along with heat and ice. Patient states that the heating pad does do better however it still only temporary. Patient has been to a chiropractor in the past. Patient is a well-controlled diabetic. Patient states she does have fibromyalgia and is on Cymbalta for this. At our last visit the patient states she is not interested in injective therapy. We did discuss with her about a spinal cord stimulator trial however she states she is not interested at this time either. Patient is requesting stronger pain medication at today's visit. Her Bradley is [id number]. Its been reviewed and appropriate. Review of Systems: General: No recent weight changes, no fever, no sleep disturbances Respiratory: No cough, no shortness of air, no recurring pulmonary infections Cardiovascular/peripheral vascular: No chest pain, no palpitations, no edema, no shortness of breath Gastrointestinal: No new onset incontinence, normal bowel movements reported Genitourinary: No new onset incontinence Musculoskeletal: Low back pain, joint pain Psychiatric: [Normal mood/affect] Neurological: [Denies weakness in extremities], [denies balance issues] Objective:: Physical Exam: General: Alert and oriented x3, no acute distress, pleasant and cooperative Lungs: Respirations even and unlabored, symmetrical chest expansion Eyes: PERRL Musculoskeletal: Flexion and extension of lumbar [spine] somewhat guarded secondary to pain, [antalgic gait noted] Neurological: Speech clear, no gross sensory deficit ORT score updated with low risk Assessment:: Low back pain, degenerative disc disease of lumbar spine with lumbar radiculopathy symptoms, fibromyalgia Plan:: Patient continues to experience significant pain in her low back and throughout her joints related to her fibromyalgia. At this time we will not prescribe any scheduled medications. I have counseled the patient that she may need to look at other pain management facilities that may be able to prescribe something stronger for her pain. At this time we will not send in any additional prescriptions/refills in. I have counseled the patient that she can contact our office to make her own follow-up appointment if needed in the future. Patient has been instructed to contact the clinic with any concerns before the next appointment. Dr. Miguel has reviewed this note and agrees with this plan of care. This note was dictated using voice recognition software and make contain errors or omissions. [facility] Disclaimer: The information contained in this section may have been updated after the patient was seen, as this information can be updated by other users. 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
== END ==
PROVIDERS: PCP Internal Medicine Adolescent Medicine; Visit Provider Nurse Practitioner Family
DX: M51.16 Intervertebral disc disorders with radiculopathy, lumbar region (principal); M79.7 Fibromyalgia
CPT/HCPCS: 99212; G0463

== ENCOUNTER 2022-07-15 12:09 | Emergency (ER) | payer MEDICARE, SELFPAY ==
[2022-07-15] VITALS (8 sets, daily range): BP systolic 103–123; BP diastolic 56–71; PULSE 86–95; RESP 16–22; TEMP 36.4–36.6; O2SAT 96–99; BMI 26.4
--- NOTE | 2022-07-15 12:24 | HMH.EDGENADL ---
Discharge Plan Disposition Patient Disposition: Home, Self-Care Condition: Good Chief Complaint: Hyper/Hypoglycemia Prescriptions Prescriptions: No Action buspirone 10 mg tablet 10 mg PO DAILY atorvastatin 20 mg tablet 20 mg PO DAILY memantine 10 mg tablet 10 mg PO DAILY insulin lispro 100 unit/mL solution 1 sliding scale dose continuous subcutaneous infusion USEASDIRECTD trazodone 100 MG tablet 100 mg PO HS Label Comments: TAKE 1 TABLET BY MOUTH EVERY DAY AT BEDTIME MAY CAUSE DROWSINESS duloxetine 60 MG capsule,delayed release(DR/EC) 60 mg PO DAILY Label Comments: TAKE 1 CAPSULE BY MOUTH TWICE DAILY hydrocodone-acetaminophen 7.5-325 mg/15 mL solution 15 ml PO Q6H MDD 30 mg PRN (Reason: pain) Qty: 118 0RF tramadol 50 mg tablet 50 mg PO DAILY ondansetron [ondansetron] 4 mg tablet,disintegrating 4 mg PO Q8H baclofen 10 mg tablet 10 mg PO TID PRN (Reason: MUSCLE SPASMS) Qty: 42 0RF Referrals Follow up/Referrals: Dodie Moreira APRN [Primary Care Provider] - See instructions Activity Restrictions/Add. Instructions Additional Instructions/Restrictions: Please follow-up with your primary care doctor soon as possible to check your insulin pump. Meanwhile check your blood glucose frequently. If you notice that the pump is still malfunctioning stop using the pump and start injecting yourself on the sliding scale insulin as you have before you received to the pump. Return to the emergency department immediately if you feel worse in any way. Continue taking all medications as prescribed. Clinical Impressions Clinical Impression: Diabetic ketoacidosis Instructions Patient Instructions: DI for Hyperglycemia -- Adult Discharge ED Provider: Cristo Carrington Adult HPI General Chief complaint: Hyper/Hypoglycemia Stated complaint: hi sugar Time Seen by Provider: 07/15/22 12:24 Mode of Arrival: Family Vehicle History of Present Illness HPI narrative: The patient presents to the emergency department complaining of an elevated glucose all night. She has an insulin pump. Apparently the insulin pump did not administer any insulin overnight. Related Data Home Medications Medication Instructions Recorded Confirmed duloxetine 60 mg capsule,delayed 60 mg PO DAILY Depression 11/04/18 07/05/22 release trazodone 100 mg tablet 100 mg PO HS INSOMNIA 11/04/18 07/05/22 atorvastatin 20 mg tablet 20 mg PO DAILY HLD 05/01/22 07/05/22 buspirone 10 mg tablet 10 mg PO DAILY MOOD 05/01/22 07/05/22 insulin lispro 100 unit/mL 1 sliding scale dose continuous 05/01/22 07/05/22 subcutaneous solution subcutaneous infusion USEASDIRECTD Diabetes memantine 10 mg tablet 10 mg PO DAILY MEMORY 05/01/22 07/05/22 ondansetron 4 mg disintegrating 4 mg PO Q8H Nausea & vomiting 06/01/22 07/05/22 tablet tramadol 50 mg tablet 50 mg PO DAILY Pain 07/05/22 07/05/22 Previous Rx's Medication Instructions Recorded hydrocodone 7.5 mg-acetaminophen 15 ml PO Q6H PRN pain #118 mL 05/15/22 325 mg/15 mL oral solution baclofen 10 mg tablet 10 mg PO TID PRN MUSCLE SPASMS #42 06/01/22 tabs Allergies Allergy/AdvReac Type Severity Reaction Status Date / Time azithromycin [From Zithromax] Allergy Unknown Verified 05/29/22 13:31 guaifenesin Allergy Unknown Verified 05/29/22 13:31 iron [IRON] Allergy Unknown Verified 05/29/22 13:31 Penicillins [PENICILLINS] Allergy Unknown Verified 05/29/22 13:31 pseudoephedrine Allergy Unknown Verified 05/29/22 13:31 Sulfa (Sulfonamide Allergy Unknown Verified 05/29/22 13:31 Antibiotics) [SULFA (SULFONAMIDE ANTIBIOTICS)] sulfamethoxazole Allergy Unknown Verified 05/29/22 13:31 [From BACTRIM] trimethoprim [From BACTRIM] Allergy Unknown Verified 05/29/22 13:31 venlafaxine [From EFFEXOR] Allergy Unknown Verified 05/29/22 13:31 [facility] [place] Disclaimer: The information contained in this section may
--- NOTE | 2022-07-15 12:26 | PC.NURSE ---
DR AVALOS AT BEDSIDE
[2022-07-15 12:30] LABS: POC Glucose,Bedside 335 (70-110)
--- NOTE | 2022-07-15 12:30 | PC.NURSE ---
called back to second floor to update nurse about bp dropping and second fluid bolus started.
[2022-07-15 12:44] LABS: Anion Gap 25.6 mEq/L (5-15); Blood Urea Nitrogen 33 mg/dl (7-17); Calcium 9.2 mg/dl (8.4-10.2); Carbon Dioxide 15 mmol/L (22.0-30.0); Chloride 100 mmol/L (98-107); Creatinine Clearance Estimated 41 mL/min (50-200); Estimated Glomerular Filt Rate 35 ml/min (>60); GFR (African American) 42 ML/MIN (>60); Glucose 354 mg/dl (74-100); Potassium 4.6 mmoL/L (3.5-5.1); Sodium 136 mmol/L (136-145)
[2022-07-15 13:34] LABS: POC Glucose,Bedside 272 (70-110)
--- NOTE | 2022-07-15 13:52 | PC.NURSE ---
pt given meal tray
--- NOTE | 2022-07-15 13:56 | PC.NURSE ---
ROUNDED ON PT, NO NEEDS AT THIS TIME. FAMILY AT BEDSIDE
[2022-07-15 14:09] LABS: POC Glucose,Bedside 240 (70-110)
[2022-07-15 14:39] LABS: POC Glucose,Bedside 205 (70-110)
[2022-07-15 15:19] LABS: POC Glucose,Bedside 198 (70-110)
--- NOTE | 2022-07-15 15:41 | PC.NURSE ---
ROUNDED ON PT, REPORTS FEELING BETTER, WOULD BE COMFORTABLE TO GO HOME
[2022-07-15 15:46] LABS: POC Glucose,Bedside 214 (70-110)
== END 2022-07-15 16:20 | disposition home or self-care (01) ==
PROVIDERS: Emergency Provider Emergency Medicine; PCP Nurse Practitioner Family
DX: E11.65 Type 2 diabetes mellitus with hyperglycemia (principal); E11.10 Type 2 diabetes mellitus with ketoacidosis without coma; F41.9 Anxiety disorder, unspecified; M79.7 Fibromyalgia; E78.5 Hyperlipidemia, unspecified; M19.90 Unspecified osteoarthritis, unspecified site; Z80.9 Family history of malignant neoplasm, unspecified; Z82.3 Family history of stroke; Z82.49 Family history of ischemic heart disease and other diseases of the circulatory system
CPT/HCPCS: 80048; 82962; 96361; 96374; 99285

== ENCOUNTER → 2023-04-11 15:16 | Outpatient (CLI) | payer MEDICARE, SELFPAY ==
--- NOTE | 2023-04-11 15:20 | MM_ITS ---
PROCEDURE INFORMATION: Exam: MG Bilateral Screening 3D Mammography Exam date and time: 04/11/2023 3:28 PM Age: 68 years old Clinical indication: Screening. No family history of breast cancer. TECHNIQUE: Imaging protocol: Bilateral Screening tomosynthesis and 2D mammography including computer-aided detection (CAD) when performed. COMPARISON: 1. MG MM DIG SCREENING MAMM BI W/CAD 06/08/2020 1:08 PM 2. MG MM DIG SCREENING MAMM BI W/CAD 06/03/2019 8:36 AM 3. MG DMDXUAVL DIG MAMM-DX UNI ADD VIEWS-LT 08/01/2012 3:37 PM 4. MG MOBILE DIGITAL SCREEN BILAT* 07/04/2012 10:18 AM FINDINGS: MAMMOGRAPHY: Breast composition: There are scattered areas of fibroglandular density. Mass: None. Architectural distortion: None. Calcifications: No suspicious calcifications. Asymmetric density: None. Skin thickening: None. Axillary adenopathy: None. IMPRESSION: No mammographic evidence of malignancy. Annual screening is recommended unless otherwise clinically indicated. ASSESSMENT: BI-RADS Category 1: Negative
== END ==
PROVIDERS: PCP Nurse Practitioner Family; Visit Provider Internal Medicine Adolescent Medicine
DX: Z12.31 Encounter for screening mammogram for malignant neoplasm of breast (principal)
CPT/HCPCS: 77063; 77067

== ENCOUNTER 2023-11-13 09:14 | Outpatient (CLI) | payer MEDICARE, SELFPAY | END 2023-11-13 23:59 | disposition home or self-care (01) | LOC: RAD 09:14 | PROVIDERS: PCP Internal Medicine Adolescent Medicine; Visit Provider Internal Medicine Adolescent Medicine | DX: M85.80 Other specified disorders of bone density and structure, unspecified site (principal) | CPT/HCPCS: 77080 ==

== ENCOUNTER 2024-03-31 11:03 | Outpatient (CLI) | payer MEDICARE, SELFPAY ==
--- NOTE | 2024-03-31 11:12 | US_ITS ---
FINAL REPORT CLINICAL HISTORY: Hyperlipidemia, DM I, bilateral rest pain, bilateral claudication COMPARISON: None FINDINGS: ANKLE-BRACHIAL PRESSURE INDICES Pressure indices are as follows: RIGHT LOWER EXTREMITY: Ankle-brachial pressure index: 1.17 Comments: Normal LEFT LOWER EXTREMITY: Ankle-brachial pressure index: 1.14 Comments: Normal CONCLUSION: No evidence of significant obstructive peripheral vascular disease of the lower extremities Reviewed, Interpreted and Dictated by Leeroy Perez MD Transcribed by Ting Benjamin Authenticated and [facility]
== END 2024-03-31 23:59 | disposition home or self-care (01) ==
LOC: RT 11:08
PROVIDERS: PCP Internal Medicine Adolescent Medicine; Visit Provider Internal Medicine Adolescent Medicine
DX: I70.213 Atherosclerosis of native arteries of extremities with intermittent claudication, bilateral legs (principal)
CPT/HCPCS: 93923

== ENCOUNTER 2024-05-05 15:03 | Emergency (ER) | payer MEDICARE, SELFPAY ==
[2024-05-05 16:33] VITALS: BP 131/78; PULSE 78; RESP 19; TEMP 36.8; O2SAT 98; BMI 26.2
[2024-05-05 16:53] LABS: UTC Strep Screen (Rapid) Negative (Negative)
--- NOTE | 2024-05-05 16:57 | EXP.UTC ---
Discharge Plan Prescriptions Prescriptions: No Action atorvastatin 20 mg tablet 20 mg PO DAILY trazodone 100 MG tablet 100 mg PO HS Patient Comments: TAKE 1 TABLET BY MOUTH EVERY DAY AT BEDTIME MAY CAUSE DROWSINESS baclofen 10 mg tablet 10 mg PO TID PRN (Reason: MUSCLE SPASMS) Qty: 42 0RF Referrals Follow up/Referrals: Adriel Salinas MD [Primary Care Provider] - See instructions Activity Restrictions/Add. Instructions Additional Instructions/Restrictions: *Monitor Temp, Over the counter Motrin or Tylenol as directed/as needed Tylenol every 4 hours and Motrin every 6 hours (as long as your family doctor has told you that you can take it) for fever or pain. and straight to ER if unable to lower temp less than 101.0 after medication given *Warm salt water gargles may help to soothe the throat *Throat Lozenges? *Warm fluids like tea with honey may help to soothe the throat? *Sleep elevated *Humidifier/Vaporizer Your throat swab was sent for culture. Those results are typically sent to your primary care. Be sure to follow up in 2-3 days with your family doctor/primary care physician if no improvement so they can review those result and treat if necessary. If you don?t have a primary care doctor, I recommend you get one but in the mean time, you will have to return to a walk in clinic Follow up IMMEDIATELY for new or worsening symptoms or no Noticeable improvement over the next 48-72 hours. 911 for difficulty breathing or swallowing Clinical Impressions Clinical Impression: Viral upper respiratory infection Instructions Patient Instructions: Sore Throat Print Language Print Language: Romanian Discharge ED Provider: Vivienne Pena [facility] [place] General Stated complaint: Sore throat earache,CROW Mode of Arrival: Ambulatory Source of Information: Patient Time Seen by Provider: 05/05/24 16:57 Description of Symptoms (Recalled from Triage Doc. by RN): SWOLLEN THROAT, EAR ACHE, CROW HEENT Symptoms (Recalled from RN notes): Yes Resp Symptoms (Recalled from RN notes): No Skin Symptoms (Recalled from RN notes): No MS Symptoms (Recalled from RN notes): No Functional Status (Recalled from RN notes): WNL History of Present Illness Provider Complaint: Patient states that for the last couple of days she has been having sore throat and pain and pressure in ears and headache States that she was worried she may have strep throat so she came in to get checked Related Data Home Medications ?Medication ?Instructions ?Recorded ?Confirmed trazodone 100 mg tablet 100 mg PO HS INSOMNIA 11/04/18 05/05/24 atorvastatin 20 mg tablet 20 mg PO DAILY HLD 05/01/22 05/05/24 Previous Rx's ?Medication ?Instructions ?Recorded baclofen 10 mg tablet 10 mg PO TID PRN MUSCLE SPASMS #42 06/01/22 tabs Allergies Allergy/AdvReac Type Severity Reaction Status Date / Time azithromycin (From Zithromax) Allergy Unknown Verified 05/29/22 13:31 guaifenesin Allergy Unknown Verified 05/29/22 13:31 iron (IRON) Allergy Unknown Verified 05/29/22 13:31 Penicillins (PENICILLINS) Allergy Unknown Verified 05/29/22 13:31 pseudoephedrine Allergy Unknown Verified 05/29/22 13:31 Sulfa (Sulfonamide Allergy Unknown Verified 05/29/22 13:31 Antibiotics) (SULFA (SULFONAMIDE ANTIBIOTICS)) sulfamethoxazole (From Allergy Unknown Verified 05/29/22 13:31 BACTRIM) trimethoprim (From BACTRIM) Allergy Unknown Verified 05/29/22 13:31 venlafaxine (From EFFEXOR) Allergy Unknown Verified 05/29/22 13:31 Worker's Comp Is this a Worker's Comp case?: No [facility] Disclaimer: The information contained in this section may have been updated after the patient was seen, as this information can be updated by other users. 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 Osteoarthritis Depression Anxiety Fibromyalgia Diabetes HLD (hyperlipidemia) Surgical History Status post excision of skin lesion, follow-up exam H/O: section H/O dilation and curettage Family History Other Family history of cancer Family history of myocardial infarction Family history of stroke Social History (Updated 07/15/22 @ 12:33 by Jhoana Fitch RN) Smoking Status: Never smoker alcohol intake: never substance use type: denies use current occupational status: retired Travel in the last 8 weeks: None housing: house caffeine: No ROS Obtained: Yes All systems reviewed & no additional complaints except as documented and Yes Systems reviewed as appropriate & no additional complaints except as documented Constitutional Constitutional: Reports system reviewed and no additional complaints, except as documented, Reports as per HPI and Reports headache(s) ENT Ears, Nose, Mouth, and Throat: Reports system reviewed and no additional complaints, except as documented, Reports as per HPI, Reports headache(s) and Reports sore throat Cardiovascular Cardiovascular: Reports system reviewed and no additional complaints, except as documented and Reports as per HPI Respiratory Respiratory: Reports system reviewed and no additional complaints, except as documented and Reports as per HPI Gastrointestinal Gastrointestingal: Reports system reviewed and no additional complaints, except as documented and as per HPI Musculoskeletal Musculoskeletal: Reports system reviewed and no additional complaints, except as documented and Reports as per HPI Neurologic Neurologic: Reports headache(s) Physical Exam General General appearance: alert and in no apparent distress ENT ENT exam: Present mucous membranes moist and TM's normal bilaterally Expanded ENT Exam Throat exam: Present tonsillar erythema and other ( PND); Absent tonsillomegaly or tonsillar exudate Respiratory Respiratory exam: Present normal lung sounds bilaterally; Absent respiratory distress or wheezes Cardiovascular Cardiovascular exam: Present regular rate, normal rhythm and normal heart sounds Abdominal Exam Abdominal exam: Present soft and normal bowel sounds; Absent distention or tenderness Neurological Exam Neurological exam: Present alert, oriented X3 and normal gait Medical Decision Making Medical Records Screening: Per USPSTF and CDC recommendations, given the prevalence of disease in our region, it is our hospital?s policy to screen for HIV and viral Hepatitis for all patients aged 18 and over and those with ongoing risk factors. Bradley Inquiry Pt receiving controlled substance: No Bradley was queried for this patient: No Vital Signs: 05/05/24 16:33 Temperature 98.3 F Temperature Source Oral Pulse Rate [Left Radial] 78 Respiratory Rate 19 Blood Pressure [Left Arm] 131/78 Blood Pressure Mean [Left Arm] 95 02 Sat by Pulse Oximetry 98 Lab Data Lab results reviewed: Yes I reviewed the patient's lab results. Lab Results 05/05/24 16:27: Strep Scn Rapid Clinic Negative Orders (Tests/Meds): ORDERS Category Date Time Status Strep Screen Confirmation Stat Micro 05/05/24 16:27 Received
[2024-05-05 17:06] VITALS: BP 131/78; PULSE 78; RESP 19; TEMP 36.8
== END 2024-05-05 17:06 | disposition home or self-care (01) ==
LOC: UTC 15:06
PROVIDERS: Emergency Provider Nurse Practitioner; PCP Internal Medicine Adolescent Medicine
DX: J06.9 Acute upper respiratory infection, unspecified (principal)
CPT/HCPCS: 87880; 99213; G0381